=== PATIENT | male | born 1955 | race Caucasian/White ===

== ENCOUNTER → 2017-01-09 | Outpatient (CLI) | payer BC ==
--- NOTE | 2017-01-09 10:44 | DI ---
MRI RIGHT SHOULDER SCAN, 01/09/2017 9:29 AM: Clinical History: Right shoulder pain with stiffness. Previous Exam: 09/04/2009. Technique: Axial, coronal, and sagittal fat saturated PD; axial gradient FE; coronal fat saturatedT2 weighted; sagittal T2 weighted. The patient is status post resection of the lateral head of the clavicle. There is a type II acromion . A small amount of fluid is present in the subacromion bursa. There is no abnormal bone signal patte rn and there is no joint effusion. There is tendinosis of the supraspinatus tendon and the tendon of the long head of the biceps muscle in the rotator interval, with normal appearance of the infraspinat us and teres minor tendons. There is a small articular surface tear measuring 8 mm in transverse dime nsion by 6 mm in longitudinal dimension just proximal to the insertion of the tendon on the humeral h ead. There is a type II SLAP tear with anterior extension into the anterosuperior quadrant. The remai nder of the labrum is normal. There is thinning of the cartilaginous surfaces of the humeral head in the glenoid fossa. There is no muscle atrophy. Readin. Small partial-thickness articular surface tear in the distal portion of the subscapularis tendon measuring 8 x 6 mm in transverse and longitudinal dimension. Tendinosis is present in the supraspinat us tendon and the tendon of the long head of the biceps muscle in the rotator interval. There is a ty pe II SLAP tear with anterior extension into the anterosuperior quadrant. Thinning of the cartilagino us surfaces of the humeral head in the glenoid fossa is present. 2. The infraspinatus and teres minor tendons are normal. There is a type II acromion and the patient has had resection of the lateral head of the clavicle.
== END ==
LOC: MRI 09:24
PROVIDERS: ATTEND Orthopaedic Surgery
DX: M25.511 Pain in right shoulder (principal); S43.431A Superior glenoid labrum lesion of right shoulder, initial encounter
CPT/HCPCS: 73221

== ENCOUNTER → 2017-02-10 | Outpatient (CLI) | payer BC ==
--- NOTE | 2017-02-10 09:52 | DI ---
MRI CHEST W/O CN,02/10/2017 8:45 AM: Clinical History: Right prominent inflamed sternoclavicular joint. Previous Exam: None available. Findings: Multiplanar MR images are obtained through the sternoclavicular joints, and demonstrate diffuse hyper trophy of both sternoclavicular joints. This is worse on the right where there is a trace amount of f luid within the joint and there is some adjacent marrow edema involving the head of the clavicle and the right manubrium. There are degenerative endplate changes involving the visualized portions of the cervical spine, but these are not well evaluated on this exam. The visualized portions of the spinal cord is unremarkable. Limited evaluation of the brachial plexus is unremarkable. The major vascular flow voids is also unre markable. Impression: Degenerative hypertrophy of both sternoclavicular joints worse on the right where there is some subch ondral cyst formation involving the clavicular head and the right manubrium. 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 Cannot completely rule out the possibility of an infection, but this is more l ikely due to osteoarthritis, crystal deposition disease or one of the inflammatory arthritides.
== END ==
LOC: MRI 02-06 09:38
PROVIDERS: ATTEND Orthopaedic Surgery
DX: M19.011 Primary osteoarthritis, right shoulder (principal); M94.211 Chondromalacia, right shoulder
CPT/HCPCS: 71550

== ENCOUNTER 2019-04-20 21:44 | Inpatient (IN) ==
[2019-04-20] MEDS ORDERED: PANTOPRAZOLE IV 40 MG VIAL IVP ONE (21:56)
[2019-04-20] MEDS ORDERED: Sodium Chloride 0.9% 1,000 ML PRIMARY IV ONE (21:56)
[2019-04-20] MEDS ORDERED: MORPHINE SULFATE 4 MG/1 ML IVP ONE ×2 (21:56→23:41)
[2019-04-20] MEDS ORDERED: ONDANSETRON 4 MG/2 ML VIAL IVP ONE (21:56)
[2019-04-20 22:04] LABS: BASOPHILS # (AUTO) 0.04 10*3/UL; BASOPHILS % (AUTO) 0.4 % (0-1); EOSINOPHILS # (AUTO) 0.18 10*3/UL; EOSINOPHILS % (AUTO) 1.9 % (0-8); Hematocrit [HCT] 43.1 % (42.0-52.0); Hemoglobin [HGB] 14.8 g/dL (14.0-18.0); LYMPHOCYTES # (AUTO) 2.08 10*3/uL; MEAN CORPUSCULAR HEMOGLOBIN 29.5 PG (27-31); MEAN CORPUSCULAR HGB CONC 34.3 g/dL (33-37); MEAN PLATELET VOLUME 10.5 FL (7.4-12.2); MONOCYTES # (AUTO) 0.65 10*3/UL (0.3-0.8); MONOCYTES % (AUTO) 6.9 % (5-15); NEUTROPHILS % (AUTO) 68.7 % (50-80); PLATELET MORPHOLOGY COMMENT NORMAL MORPHOLOGY (NORM); RBC MORPHOLOGY COMMENT NORMAL MORPHOLOGY (NORM); RED BLOOD COUNT 5.01 10^6/uL (4.70-6.10); WBC MORPHOLOGY COMMENT NORMAL MORPHOLOGY (NORM)
--- NOTE | 2019-04-20 22:07 | EKG ---
[address] [address] Measurements Intervals [place] Rate: 78 P: 28 GA: 150 QRS: 24 QRSD: 104 T: 19 QT: 349 QTc: 382 Interpretive Statements SINUS RHYTHM Compared to ECG 05/26/2018 07:20:33 No significant changes Electronically Signed On 04-21-19 08:15:19 MDT by Jeovany Booker MD [email or web address]
[2019-04-20 22:16] LABS: BLOOD UREA NITROGEN 22 mg/dL (7-22); SERUM ALBUMIN 4.3 g/dL (3.5-4.8)
[2019-04-20 22:29] LABS: LIPASE 8077 IU/L (23-300)
--- NOTE | 2019-04-20 22:58 | PDOC ---
Abdomen/Flank HPI - General Chief Complaint: Abdomen Pain Stated Complaint: ABDOMEN PAIN Date Seen by Provider: 04/20/19 Time Seen by Provider: 21:50 Source: POSITIVE: Patient Exam Limitations: POSITIVE: No limitations Nurse's Notes Reviewed & Considered: Yes - History of Present Illness Initial Comments: The patient is a 64-year-old male who presents to the emergency department with epigastric abdominal pain. He states that at approximately 3 PM this afternoon shortly after drinking a cold glass of water he had onset of pain in the epigastric region of his abdomen. This pain has progressively worsened since then. He states that his baseline pain is about a 6 out of 10 and he intermittently gets cramping/stabbing pain that shoots up to a 10 out of 10. He does have associated nausea however has not had any vomiting. States that he has had 2 normal bowel movements since onset of pain. The pain does radiate somewhat through to his back. He denies any associated fevers or chills or urinary symptoms. The patient states that he had similar pain approximately a year ago when he was diagnosed for pancreatitis. He states that the etiology of his pancreatitis had remained unclear last year however it was thought that it could've been related to one of the arthritis medications that he was taking at the time. He has had previous cholecystectomy as well as previous appendectomy. He does not drink alcohol. - Patient Home Medications Home Medications: Home Medications Aspirin [Aspir 81] 1 tab PO DAILY tab 04/21/17 Cranberry Fruit Extract [Cranberry] 1 cap PO QD cap 04/21/17 Folic Acid 1 tab PO DAILY tab 04/21/17 Cholecalciferol [Vitamin D] 1,000 unit PO DAILY 07/20/17 Hydrocortisone Cream 2.5% [Hytone Cream 2.5%] 30 applic TOPICAL BID PRN 07/20/17 Ketoconazole [Nizoral] 30 gm TP BID PRN 07/20/17 Pantoprazole Sodium [Protonix] 40 mg PO BID #60 tab 05/30/18 codeine 10 mg-guaifenesin 100 mg/5 mL oral liquid 5 ml PO Q6H PRN #120 ml 07/22/18 fluticasone propionate 50 mcg/actuation nasal spray,suspension 50 mcg INASL QDAY #16 g 07/22/18 prednisone 20 mg tablet 20 mg PO QDAY #7 tab 07/22/18 - Patient Allergies Allergies/Adverse Reactions: Allergies Allergy/AdvReac Type Severity Reaction Status Date / Time penicillin G Allergy Unknown HIVES Verified 04/20/19 21:46 Past Medical History - heen HEENT History: Denies History Cardiovascular History: Denies History Respiratory History: Denies History Gastrointestinal History: Pancreatitis Genitourinary History: Denies History Endocrine History: Denies History Musculoskeletal History: Denies History Prosthesis or Implant: No Neurological History: Denies History Blood Disorders: Denies History Psychiatric History: Denies History History of Sexually Transmitted Diseases: No Cancer History: Denies History In Past Year Been Physically Harmed or Verbally Threatened: No History of MDRO: No History of Other Communicable Diseases: No Tobacco Use: Former Smoker In the Past 12 Months, Have Used or Abuse Any Substance: None Previous Surgical History: Yes Type / Date of Surgery: RIGHT THUMB, TONSILLECTOMY, RIGHT ANKLE, APPENDECTOMY, CHOLECYSTECTOMY, RIGHT SHOULDER, LEFT SHOULDER Anesthesia Reactions: No Malignant Hyperthermia: No Significant Family History: No pertinent family hx Past Medical History Reviewed: Reviewed - No Changes ROS - Limitations ROS Limitations: No Limitations Constitution: DENIES: Fever Cardiovascular: REPORTS: Denies Cardiac Symptoms Respiratory: REPORTS: Denies Resp Symptoms Neurological: REPORTS: Denies Neuro Symptoms Gastrointestinal: REPORTS: Abdominal Pain, Nausea. DENIES: Vomitting, Diarrhea Endocrine: REPORTS: Denies Symptoms Musculoskeletal: REPORTS: Denies MS Symptoms Genitourinary: DENIES: Dysuria, Difficulty Urinating Eyes: REPORTS: Denies Symptoms ENT: REPORTS: Denies Symptoms Skin: DENIES: Rash Abdominal/Flank Pain PE - General Appearance General Appearance: POSITIVE: Alert, Cooperative, No Acute Distress - HEENT HEENT: POSITIVE: Head Inspection Nml, Eyes Inspection Nml, Ears Inspection Nml, Nose Inspection Nml, Oral/Dental Inspect. Nml, Pharynx Inspect. Nml, Dry Mucous Membranes - Respiratory Respiratory: POSITIVE: No Respiratory Distress, Breath Sounds Normal - Cardiovascular Cardiovascular: POSITIVE: Regular Rate and Rhythm, Heart Sounds Normal - Abdomen Additional Abdominal Details: His abdomen is mildly distended, he does have generalized abdominal tenderness which is most prominent in the epigastric region, no guarding or rebound tenderness, bowel sounds are present however hypoactive. - Genital / Rectal Male Genital: POSITIVE: Normal Inspection - Skin Skin: POSITIVE: Intact, No Rash - Extremities Extremity: Normal ROM: (All Extremities), Normal Inspection: (All Extremities) - Neurological Neurological: POSITIVE: Oriented X3, metal tile lather Normal As Tested, Motor Normal, Sensation Normal Abdomen Progress - Results Reviewed by me Xrays/CTs/US Reviewed by me: Yes Discussed with Radiologist: Yes Radiology Findings: CT scan of the abdomen and pelvis with IV contrast shows some inflammatory change to the wall of the duodenum with no other acute findings per radiologist. Lab Results Reviewed by Me: Yes CBC and BMP: 04/20/19 22:00 04/20/19 22:00 Lab Results:: Laboratory Results 04/20/19 04/20/19 04/20/19 22:00 22:00 22:00 WBC 9.46 RBC 5.01 Hgb 14.8 Hct 43.1 MCV 86.0 MCH 29.5 MCHC 34.3 RDW Std Deviation 43.1 RDW Coeff of Disha 13.8 Plt Count 244 MPV 10.5 Immature Gran % (Auto) 0.1 Neut % (Auto) 68.7 Lymph % (Auto) 22.0 [place] % (Auto) 6.9 Eos % (Auto) 1.9 Baso % (Auto) 0.4 Immature Gran # (Auto) 0.01 Neut # (Auto) 6.50 Lymph # (Auto) 2.08 [place] # (Auto) 0.65 Eos # (Auto) 0.18 Baso # (Auto) 0.04 WBC Morphology Comment Normal morphology Plt Morphology Comment Normal morphology RBC Morph Comment Normal morphology Sodium 142 Potassium 4.2 Chloride 108 Carbon Dioxide 24 Anion Gap 10 BUN 22 Creatinine 1.0 Estimated GFR > 60 BUN/Creatinine Ratio 22.00 H Glucose 126 H Calculated Osmolality 298.0 H Calcium 9.0 Total Bilirubin 0.4 AST 29 ALT 29 Alkaline Phosphatase 79 Troponin I < 0.012 C-Reactive Protein 3.0 H Total Protein 7.4 Albumin 4.3 Globulin 3.1 Albumin/Globulin Ratio 1.30 Amylase 1014 H Lipase 8077 H* EKG Interpreted/Reviewed By Me:: Yes EKG Interpretation:: POSITIVE: Normal Sinus Rhythm, Normal Rate, Normal QRS, Normal ST/T - Patient's Progress MDM / ED Course: The patient appeared to be quite uncomfortable on arrival. An IV was established and the patient did receive 1 L bolus of normal saline as well as morphine 4 mg IV, Zofran 4 mg IV and Protonix 40 mg IV. After menstruation of fluids and medications the patient's pain was significantly improved although not resolved. Initial workup reveals an EKG with normal sinus rhythm and no acute findings. His white blood cell count is normal with a CRP of 3. Liver enzymes are all within normal limits however his amylase is elevated over 1000 and his lipase is elevated over 8000. His troponin was normal. CT scan of the abdomen and pelvis with IV contrast shows some inflammatory change to the wall of the duodenum with no other acute findings per radiologist. After CT the patient's pain was starting to come back and he did receive a second dose of morphine 4 mg IV. Current findings were discussed with the patient. The patient does appear to have pancreatitis as well as possible ulcer in the duodenum. It is possible that this wall inflammation could be secondary to the pancreatitis as well. I did discuss the patient with Dr. Monroe who has agreed to admit the patient for further treatment. The patient is in agreement with this plan. - Consult Counseled: POSITIVE: Patient, Family, RE: Lab Results, RE: Radiology Results, RE: DX Patient Care Time - Estimated PCT Patient Care Time (In Minutes): 30 Vital Signs - Recent Vital Signs Vital Signs: Vital Signs (Last 8 hours) Temp Pulse Resp BP Pulse Ox 04/20/19 21:44 97.8 F 84 17 128/95 92 - VS Reviewed Vital Signs Reviewed: Yes Discharge Clinical Impression: Pancreatitis, Duodenitis Discharge Disposition: Admit to Inpatient Condition: Fair Patient Problem(s) Reviewed: Yes Date Decision to Admit to Inpatient: 04/20/19 Time Decision to Admit to Inpatient: 23:25
--- NOTE | 2019-04-20 23:04 | DI ---
EXAM: CT Abdomen and Pelvis With Intravenous Contrast CLINICAL HISTORY: ITS.REASON Abdominal Pain Physician Notes: Tech Comments: TECHNIQUE: Axial computed tomography images of the abdomen and pelvis with intravenous contrast. COMPARISON: No relevant prior studies available. FINDINGS: Lung bases: Unremarkable. No mass. No consolidation. ABDOMEN: Liver: Unremarkable. No mass. Gallbladder and bile ducts: No abnormal ductal dilation or stones. Pancreas: Unremarkable. No mass. No ductal dilation. Spleen: Unremarkable. No splenomegaly. Adrenals: Unremarkable. No mass. Kidneys and ureters: Unremarkable. No solid mass. No hydronephrosis. Stomach and bowel: Wall thickening with inflammatory change along the duodenum, consistent with duodenitis. PELVIS: Appendix: No findings to suggest acute appendicitis. Bladder: Unremarkable. No mass. Reproductive: Unremarkable as visualized. ABDOMEN and PELVIS: Intraperitoneal space: Unremarkable. No free air. No significant fluid collection. Bones/joints: No acute fracture. No dislocation. Soft tissues: Unremarkable. Vasculature: No abdominal aortic aneurysm. Lymph nodes: Unremarkable. No enlarged lymph nodes. IMPRESSION: Wall thickening with inflammatory change along the duodenum, consistent with duodenitis.
[2019-04-21] MEDS ORDERED: LIDOCAINE W/ SODIUM BICARB 0.5 ML SYR SUBD PRN (00:16)
[2019-04-21] MEDS ORDERED: CALCIUM CARBONATE 500 MG (TUMS) CHEWABLE TABLET PO PRN (00:16)
[2019-04-21] MEDS ORDERED: DOCUSATE 100 MG CAPSULE PO PRN (00:16)
[2019-04-21] MEDS: Lactated Ringers 1,000 ML PRIMARY IV SCH ×3 (00:37→18:49)
[2019-04-21 01:53] LABS: BILIRUBIN,URINE NEGATIVE (NEG); CLARITY,URINE CLEAR (CLEAR); COLOR,URINE YELLOW (Y); GLUCOSE, URINE (UA) NEGATIVE (NEG); OCCULT BLOOD,URINE NEGATIVE (NEG); PH,URINE 5.5 (5.0-8.5); PROTEIN,URINE NEGATIVE (NEG); UROBILINOGEN,URINE 0.2 EU/dL (0.2)
[2019-04-21 01:55] LABS: URINE SAMPLE TYPE CLEAN CATCH URINE
[2019-04-21] MEDS: HYDROmorphone 2 MG/1 ML IVP PRN ×2 (02:47→06:19)
[2019-04-21 05:34] LABS: BASOPHILS # (AUTO) 0.03 10*3/UL; BASOPHILS % (AUTO) 0.3 % (0-1); EOSINOPHILS # (AUTO) 0.17 10*3/UL; EOSINOPHILS % (AUTO) 1.8 % (0-8); Hematocrit [HCT] 40.8 % (42.0-52.0); Hemoglobin [HGB] 13.6 g/dL (14.0-18.0); LYMPHOCYTES # (AUTO) 2.71 10*3/uL; MEAN CORPUSCULAR HEMOGLOBIN 29.4 PG (27-31); MEAN CORPUSCULAR HGB CONC 33.3 g/dL (33-37); MEAN CORPUSCULAR VOLUME 88.1 FL (80-90); MONOCYTES # (AUTO) 0.93 10*3/UL (0.3-0.8); MONOCYTES % (AUTO) 9.8 % (5-15); NEUTROPHILS # (AUTO) 5.66 10*3/UL; NEUTROPHILS % (AUTO) 59.4 % (50-80); RED BLOOD COUNT 4.63 10^6/uL (4.70-6.10)
[2019-04-21 05:35] LABS: BLOOD UREA NITROGEN 19 mg/dL (7-22); SERUM ALBUMIN 3.7 g/dL (3.5-4.8)
[2019-04-21 05:41] LABS: PLATELET MORPHOLOGY COMMENT NORMAL MORPHOLOGY (NORM); RBC MORPHOLOGY COMMENT NORMAL MORPHOLOGY (NORM); WBC MORPHOLOGY COMMENT NORMAL MORPHOLOGY (NORM)
[2019-04-21] MEDS ORDERED: PANTOPRAZOLE 40 MG TABLET PO SCH (09:00)
[2019-04-21] MEDS: predniSONE Tab 20 MG TAB PO SCH (10:31)
[2019-04-21] MEDS: ASPIRIN EC 81 MG TABLET PO SCH (10:31)
[2019-04-21] MEDS: PANTOPRAZOLE IV 40 MG VIAL IVP SCH (10:32)
--- NOTE | 2019-04-21 10:57 | PDOC ---
HPI - History of Present Illness History of Present Illness: This very nice 64-year-old gentleman was seen in the ER for abdominal pain and out of the blue*have in the epigastric pain before hitting the ER some nausea no vomiting and his pain was similar to about a year ago when he had pancreatitis. At that time the etiology remained unclear he also had an appendectomy and cholecystectomy his pancreatitis was thought to be from his arthritis medication at that time which he is not taking any longer His lipase was 8000 today his pain is almost disappeared and lipase is 4000 Past Medical History Medical History: 1. History of hiatal hernia with reflux. 2. History of ost eoarthritis Surgical History: 1. History of cholecystectomy for nonfunctioning gallbladder. 2. History of Tonsillectomy. 3. History of appendectomy Family History: Reviewed an Not Pertinent Tobacco Use: Former Smoker In the Past 12 Months, Have Used or Abuse Any of the Following Substance: None Medication / Allergies Home Medications: Home Medications Medication Instructions Recorded Confirmed Aspirin [Aspir 81] 1 tab PO DAILY tab 04/21/17 04/20/19 Cranberry Fruit Extract [Cranberry] 1 cap PO QD cap 04/21/17 04/20/19 Folic Acid 1 tab PO DAILY tab 04/21/17 04/20/19 Cholecalciferol [Vitamin D] 1,000 unit PO DAILY 07/20/17 04/20/19 Hydrocortisone Cream 2.5% [Hytone 30 applic TOPICAL BID PRN 07/20/17 04/20/19 Cream 2.5%] Ketoconazole [Nizoral] 30 gm TP BID PRN 07/20/17 04/20/19 Pantoprazole Sodium [Protonix] 40 mg PO BID #60 tab 05/30/18 04/20/19 codeine 10 mg-guaifenesin 100 mg/5 5 ml PO Q6H PRN #120 ml 07/22/18 04/20/19 mL oral liquid fluticasone propionate 50 50 mcg INASL QDAY #16 g 07/22/18 04/20/19 mcg/actuation nasal spray,suspension prednisone 20 mg tablet 20 mg PO QDAY #7 tab 07/22/18 04/20/19 Allergies/Adverse Reactions: Allergies Allergy/AdvReac Type Severity Reaction Status Date / Time penicillin G Allergy Unknown HIVES Verified 04/21/19 06:30 Review of Systems - Review of Systems All Systems: Reviewed & No Additional Complaints Except as Stated Exam - Vitals Vital Signs: Vital Signs Temperature 98.2 F Temperature Source Temporal Artery Scan Pulse Rate [Pulse Oximeter] 65 Pulse Rate 60 Respiratory Rate 15 Blood Pressure [Left Arm] 108/66 Blood Pressure 120/71 Pulse Ox 95 Oxygen Flow Rate 2 Oxygen Delivery Method Nasal Cannula Height 5 ft 9 in Weight 196 lb 9.6 oz - General General Appearance: No Acute Distress, Cooperative - Respiratory Respiratory Exam: POSITIVE: Clear to Auscultation - Bilaterally, Breathing Non Labored, Normal To Percussion, Normal to Percussion and Palpation - Cardiovascular Cardiovascular Exam: POSITIVE: RRR, No Murmur, No Clicks, No Gallops, No Rubs, PMI Non-Displaced - GI/Abdominal GI/Abdominal Exam: POSITIVE: Normal Bowel Sounds, Non Tender, Non Distended, Soft, No Masses, No Hepatomegaly, No Splenomegaly, No Organomegaly - Extremities Extremities Exam: POSITIVE: No Clubbing Present, No Edema Present, No Cyanosis Present Results - Labs CBC and BMP: 04/21/19 04:22 04/21/19 04:22 Assessment and Plan - Patient Problems (1) Duodenitis Current Visit: Yes Status: Acute Code(s): K29.80 - Duodenitis without bleeding (2) Pancreatitis Current Visit: Yes Status: Acute Comment: Continue Protonix IV nothing by mouth IV fluids pain control MRI of his pancreas today to better evaluate labs look improved Code(s): K85.90 - Acute pancreatitis without necrosis or infection, unspecified
[2019-04-21] MEDS: ONDANSETRON 4 MG/2 ML VIAL IVP PRN ×2 (17:14→20:35)
[2019-04-21] MEDS ORDERED: LORazepam 2 MG/1 ML VIAL IVP ONE (21:30)
--- NOTE | 2019-04-21 21:48 | DI ---
MRI ABDOMEN WITHOUT IV CONTRAST, 04/21/2019 7:00 AM: Clinical History: Pancreatitis. Previous Exam: None at this facility. Comparison is made with the CT abdomen and pelvis scan with IV contrast from 04/20/2019. Axial T2 weighted and T2 fat sat; coronal T2 fat sat; T1-weighted axial in and out of phase. 3-D MRCP thick slice scans. The liver is normal and there is no fatty infiltration. The common hepatic duct measures 3 mm and the common bile duct also measures 3 mm. There is fluid along the course of the second and third portion s of the duodenum. The pancreas and the pancreatic duct are normal. Both adrenal glands and spleen an d both kidneys are normal. There is no adenopathy. Readin. The pancreas has a normal signal pattern throughout with a normal appearance of the pancreatic du ct. No definite peripancreatic fluid collection is seen that is typically associated with pancreatiti s. 2. There is fluid surrounding the duodenum from the C-loop to the third portion of the duodenum. It is possible that this fluid may be associated with pancreatitis but the location of this fluid from t he imaging standpoint suggests the duodenum is more likely the source of the fluid since the pancreat ic head shows no abnormally increased signal intensity to indicate an inflammatory process.
[2019-04-22] MEDS: Lactated Ringers 1,000 ML PRIMARY IV SCH ×3 (02:17→20:35)
[2019-04-22] MEDS: ACETAMINOPHEN 325 MG TABLET PO PRN ×3 (02:18→21:04)
[2019-04-22 05:16] LABS: BLOOD UREA NITROGEN 16 mg/dL (7-22); BUN/CREATININE RATIO 17.77 (6-20); SERUM ALBUMIN 3.4 g/dL (3.5-4.8)
[2019-04-22] MEDS: PANTOPRAZOLE IV 40 MG VIAL IVP SCH (09:43)
[2019-04-22] MEDS: ASPIRIN EC 81 MG TABLET PO SCH (09:43)
[2019-04-22] MEDS: predniSONE Tab 20 MG TAB PO SCH (09:43)
--- NOTE | 2019-04-22 11:31 | PDOC(PROG) ---
Interval History: Doing much better lipase down to 400 still has been very mild abdominal pain left lower quadrant. Patient would like to start some clear liquids and see how he does. Objective : Data - Labs CBC and BMP: 04/21/19 04:22 04/22/19 04:27 Objective : Exam - General General Appearance: Cooperative - Respiratory Respiratory Exam: Clear to Auscultation - Bilaterally, Breathing Non Labored, Normal To Percussion, Normal to Percussion and Palpation - Cardiovascular Cardiovascular Exam: RRR, No Murmur, No Clicks, No Gallops, No Rubs, PMI Non- Displaced - GI/Abdominal Additional GI/Abdominal Exam Details: Mild pain left lower quadrant on palpation but no guarding or rebound - Extremities Extremities Exam: No Clubbing Present, No Edema Present, No Cyanosis Present - Neurological Neurological Exam: Alert, Oriented x 3, Reflexes Normal, Normal Gait, No Facial Droop, Moves All Extremities Equally Assessment and Plan - Patient Problems (1) Duodenitis Current Visit: Yes Status: Acute Comment: Continue IV Protonix Code(s): K29.80 - Duodenitis without bleeding (2) Pancreatitis Current Visit: Yes Status: Acute Comment: Reviewed MRI results with patient and his I also called and in the [facility] to hopefully make a referral for this patient in regards to his pancreatitis which etiology is unknown at this point Code(s): K85.90 - Acute pancreatitis without necrosis or infection, unspecified
[2019-04-23] MEDS: Lactated Ringers 1,000 ML PRIMARY IV SCH (03:51)
[2019-04-23] MEDS: PANTOPRAZOLE IV 40 MG VIAL IVP SCH (08:25)
[2019-04-23] MEDS: ASPIRIN EC 81 MG TABLET PO SCH (08:25)
[2019-04-23] MEDS: predniSONE Tab 20 MG TAB PO SCH (08:25)
--- NOTE | 2019-04-23 11:36 | DCSUMMARY ---
Hospitalization Summary Hospital Course: Final Discharge Diagnosis: Current Visit Problems Problem Status Onset Code Duodenitis Acute K29.80 Pancreatitis Acute K85.90 Diagnostic Data, Laboratory Data, and Procedures of Signifigance: CBC and BMP 04/21/19 04:22 04/22/19 04:27 History and Physical pertinent to Admission: Course of Hospitalization: This very nice 64-year-old gentleman who comes in for acute pancreatitis patient was kept nothing by mouth treated with IV fluids and pain control his lipase went from 8000-242 today tolerating food with no pain. He also had a CAT scan of his abdomen and pelvis as well as an MRI of his pancreas which showed no acute abnormalities other than some fluid around the duodenum. I did talk to Dr. Babb in [facility] and the patient set up an appointment for follow-up with the specialist for possible endoscopic ultrasound which he can get as an outpatient. Patient and family very happy with the care and the follow-up I provided and of dictation thank you. On the date of discharge, the patient was examined: Gen.: No acute distress, alert, nontoxic Heart: Regular rate and rhythm, no murmurs, clicks, gallops, or rubs Lungs: Clear to auscultation bilaterally, breathing is nonlabored Abdomen/GI: Normal tones on auscultation, soft, nontender, nondistended Musculoskeletal/extremities: No clubbing, cyanosis, or edema Vitals reviewed and are listed below Vital Signs (24 hrs) 04/22/19 11:51 04/22/19 15:00 04/22/19 16:51 Temperature 98.3 F 98 F Pulse Rate 77 Pulse Rate [Pulse Oximeter] 68 63 Respiratory Rate 20 16 Blood Pressure [Right Arm] 119/57 110/64 Pulse Ox 96 92 04/22/19 19:00 04/22/19 21:00 04/22/19 23:00 Temperature 97.2 F Pulse Rate 68 60 Pulse Rate [Pulse Oximeter] 62 64 Respiratory Rate 20 Blood Pressure [Right Arm] 110/68 Pulse Ox 93 04/23/19 00:34 04/23/19 03:00 04/23/19 05:00 Temperature 97.4 F 97.2 F Pulse Rate 58 L Pulse Rate [Pulse Oximeter] 55 L 60 Respiratory Rate 16 Blood Pressure [Right Arm] 105/62 113/60 Pulse Ox 93 93 04/23/19 07:00 04/23/19 08:29 Temperature 97.8 F Pulse Rate Pulse Rate [Pulse Oximeter] 78 89 Respiratory Rate 24 24 Blood Pressure [Right Arm] 119/63 Pulse Ox 90 Assessment and Plan: 1. As per discharge assessments above 2. Disposition: Home 3. Condition on discharge, stable and improved. 4. Diet: regular diet 5. Activities: resume normal activities 6. Follow-Up: 1. PCP 2. Follow-up with Dr. Babb patient will make their own appointment I provided their number and I spoke to Dr. Babb 7. Medications at the Time of Discharge: Home Medications Medication Instructions Recorded Confirmed Aspirin [Aspir 81] 1 tab PO DAILY tab 04/21/17 04/20/19 Cranberry Fruit Extract [Cranberry] 1 cap PO QD cap 04/21/17 04/20/19 Folic Acid 1 tab PO DAILY tab 04/21/17 04/20/19 Cholecalciferol [Vitamin D] 1,000 unit PO DAILY 07/20/17 04/20/19 8. Time, care, counseling and coordination of care for this discharge is greater than 30 minutes. Exam - Vitals Vital Signs: Vital Signs Temperature 97.8 F Temperature Source Oral Pulse Rate [Pulse Oximeter] 89 Pulse Rate 58 Respiratory Rate 24 Blood Pressure [Right Arm] 119/63 Blood Pressure [Left Arm] 108/66 Blood Pressure 120/71 Pulse Ox 90 Oxygen Flow Rate 2 Oxygen Delivery Method Room Air Height 5 ft 9 in Weight 195 lb 14.4 oz Patient Problems - Patient Problem List (1) Duodenitis Current Visit: Yes Status: Acute Code(s): K29.80 - Duodenitis without bleeding Category: Medical (2) Pancreatitis Current Visit: Yes Status: Acute Code(s): K85.90 - Acute pancreatitis without necrosis or infection, unspecified Category: Medical
[2019-04-23 11:48] VITALS: BP 110/67; RESP 12; TEMP 98.3; O2SAT 92
== END 2019-04-23 12:15 | disposition home or self-care (01) | DRG 440 ==
LOC: ER 21:44 → MED/SURG 23:30
PROVIDERS: ADMIT Internal Medicine; ATTEND Internal Medicine